=== PATIENT | male | born 1935 | race Caucasian/White ===

== ENCOUNTER 2017-06-26 10:04 | Emergency (ER) | payer MEDICARE, OTHER ==
[~2017-06-26] VITALS: Ht 167.6 cm; Wt 127.0 kg
[~2017-06-26 10:04] MED LIST: ACIPHEX20 MG OR; AMLODIPINE5 MG PO; ASPIR-8181 MG OR; ASPIRIN LOW DOS81 MG PO; ASPIRIN/ENTERIC81 MG PO; AUGMENTIN875TAB PO; AVODART0.5 MG OR; CIPROFLOXACN500 MG PO; COZAAR100 MG OR; FISH OIL1000 MG PO; FLUARIX QUADRIV1 INJ IM; FOLIC ACID1 MG PO; GABAPENTIN300 MG PO; GABAPENTIN600 MG PO; HYDROCHLOROTH12.5 MG OR; HYDROCO/APAP1 TA9 PO; LEVOTHYROXIN50 MCG PO; LOSARTAN/HCT1 TA1 PO; LOVASTATIN20 M1 PO; METFORMIN500 M1 PO; METRONIDAZOL500 MG PO; MULTIVITAMI9 PO; NEURONTIN100 MG PO; NIASPAN500 MG OR; PANTOPRAZOLE SO40 MG PO; PLAVIX75 MG OR; PREDNISONE5 MG PO; RANITIDINE150 M1 OR; RHEUMATREX2.5 M1 PO; TENORMIN100 MG OR; TRAMADOL HCL50 MG PO; TRAMADOL HYDROC50 MG PO; VITAMIN C500 MG OR; VITAMIN E400 UNIT OR; ZOCOR40 MG OR
[2017-06-26] MEDS ORDERED: HYDROCO/APAP1 TA9 PO (10:25)
[2017-06-26] MEDS ORDERED: ELIQUIS5 MG PO (10:25)
[2017-06-26 10:49] LABS: URINE BILIRUBIN - DIPSTICK NEGATIVE (NEGATIVE); URINE BLOOD DIPSTICK NEGATIVE (NEGATIVE); URINE COLOR YELLOW; URINE GLUCOSE - DIPSTICK NEGATIVE (NEGATIVE); URINE KETONE NEGATIVE (NEGATIVE); URINE LEUK ESTERASE NEGATIVE (NEGATIVE); URINE NITRITE - DIPSTICK NEGATIVE (Negative); URINE PH 5.5 (4.5-8.0); URINE PROTEIN - DIPSTICK 100 mg/dL (NEG-TRACE); URINE UROBILINOGEN - DIPSTICK 0.2 E.U./dL (0.2)
[2017-06-26 10:50] LABS: HEMATOCRIT 38.2 % (39.0-50.0); HEMOGLOBIN 12.1 g/dl (14.0-18.0); IMMATURE GRANULOCYTES 0.6 % (0.0-1.0); MEAN CELL VOLUME 100.8 fL CALC (80.0-100.0); MEAN CORPUSCULAR HGB 31.9 pG CALC (26.0-32.0); MEAN CORPUSCULAR HGB CONC 31.7 g/L CALC (32.0-36.0); NEUT# 9.19 thou/uL (1.82-7.42); RED BLOOD COUNT 3.79 mill/uL (4.70-6.10); RED CELL DISTRI WIDTH 15.2 % (11.5-15.5)
[2017-06-26 10:51] LABS: URINE CLARITY CLEAR
[2017-06-26 10:52] LABS: URINE RBC 0-2 RBC/hpf (0-5); URINE WBC 0-2 WBC/hpf (0-5)
[2017-06-26 11:07] LABS: ALBUMIN 4.2 g/dL (3.2-5.0); BILIRUBIN, TOTAL 0.4 mg/dL (0.0-1.4); CREATININE 1.4 mg/dL (0.7-1.3); TOTAL PROTEIN 6.6 g/dL (6.3-8.2)
[2017-06-26 13:09] VITALS: BP 192/108
[2017-07-12] MEDS ORDERED: FUROSEMIDE20 MG PO (09:44)
[2017-07-12] MEDS ORDERED: CYMBALTA30 MG PO (09:44)
[2017-07-12] MEDS ORDERED: TRAMADOL HCL50 MG PO (09:44)
[2017-07-12] MEDS ORDERED: AVODART0.5 MG PO (09:45)
[2017-07-12] MEDS ORDERED: HYDRALAZINE10 M2 PO (09:45)
== END 2017-06-26 13:37 | disposition home or self-care (01) ==
LOC: ED 10:04
PROVIDERS: Emergency Medicine
DX: M54.9 Dorsalgia, unspecified (principal); I10 Essential (primary) hypertension; I25.10 Atherosclerotic heart disease of native coronary artery without angina pectoris; E11.9 Type 2 diabetes mellitus without complications; K21.9 Gastro-esophageal reflux disease without esophagitis

== ENCOUNTER 2017-07-13 05:52 | Day surgery (SDC) | payer MEDICARE, OTHER ==
[~2017-07-13] VITALS: Ht 167.6 cm; Wt 124.7 kg
[~2017-07-13 05:52] MED LIST changes: +AVODART0.5 MG PO; +CYMBALTA30 MG PO; +ELIQUIS5 MG PO; +FUROSEMIDE20 MG PO; +HYDRALAZINE10 M2 PO
[2017-07-13] MEDS ORDERED: HYDROCO/APAP1 TA9 PO (06:18)
[2017-07-13 13:49] VITALS: BP 150/70
== END 2017-07-13 08:05 | disposition home or self-care (01) ==
LOC: ORM 05:52
PROVIDERS: ATTEND Anesthesiology Pain Medicine
PROC: 3E0T3BZ Introduction of Anesthetic Agent into Peripheral Nerves and Plexi, Percutaneous Approach (ICD-10-PCS; principal; 2017-07-13)
PROC: 3E0T33Z Introduction of Anti-inflammatory into Peripheral Nerves and Plexi, Percutaneous Approach (ICD-10-PCS; 2017-07-13)
PROC: 3E0T3BZ Introduction of Anesthetic Agent into Peripheral Nerves and Plexi, Percutaneous Approach (ICD-10-PCS; 2017-07-13)
PROC: 3E0T33Z Introduction of Anti-inflammatory into Peripheral Nerves and Plexi, Percutaneous Approach (ICD-10-PCS; 2017-07-13)
PROC: 3E0T3BZ Introduction of Anesthetic Agent into Peripheral Nerves and Plexi, Percutaneous Approach (ICD-10-PCS; 2017-07-13)
PROC: 3E0T33Z Introduction of Anti-inflammatory into Peripheral Nerves and Plexi, Percutaneous Approach (ICD-10-PCS; 2017-07-13)
PROC: BR161ZZ Fluoroscopy of Lumbar Facet Joint(s) using Low Osmolar Contrast (ICD-10-PCS; 2017-07-13)
DX: M54.5 Low back pain (principal); M46.1 Sacroiliitis, not elsewhere classified; M47.816 Spondylosis without myelopathy or radiculopathy, lumbar region

== ENCOUNTER 2017-07-27 05:41 | Day surgery (SDC) | payer MEDICARE, OTHER ==
[~2017-07-27] VITALS: Ht 167.6 cm; Wt 119.7 kg
[2017-07-27 08:12] VITALS: BP 164/73
== END 2017-07-27 08:10 | disposition home or self-care (01) ==
LOC: ORM 05:41
PROVIDERS: ATTEND Anesthesiology Pain Medicine
PROC: 3E0T33Z Introduction of Anti-inflammatory into Peripheral Nerves and Plexi, Percutaneous Approach (ICD-10-PCS; principal; 2017-07-27)
PROC: 3E0T3BZ Introduction of Anesthetic Agent into Peripheral Nerves and Plexi, Percutaneous Approach (ICD-10-PCS; 2017-07-27)
PROC: 3E0T33Z Introduction of Anti-inflammatory into Peripheral Nerves and Plexi, Percutaneous Approach (ICD-10-PCS; 2017-07-27)
PROC: 3E0T3BZ Introduction of Anesthetic Agent into Peripheral Nerves and Plexi, Percutaneous Approach (ICD-10-PCS; 2017-07-27)
PROC: 3E0T33Z Introduction of Anti-inflammatory into Peripheral Nerves and Plexi, Percutaneous Approach (ICD-10-PCS; 2017-07-27)
PROC: 3E0T3BZ Introduction of Anesthetic Agent into Peripheral Nerves and Plexi, Percutaneous Approach (ICD-10-PCS; 2017-07-27)
PROC: 3E0T33Z Introduction of Anti-inflammatory into Peripheral Nerves and Plexi, Percutaneous Approach (ICD-10-PCS; 2017-07-27)
PROC: 3E0T3BZ Introduction of Anesthetic Agent into Peripheral Nerves and Plexi, Percutaneous Approach (ICD-10-PCS; 2017-07-27)
PROC: 3E0U33Z Introduction of Anti-inflammatory into Joints, Percutaneous Approach (ICD-10-PCS; 2017-07-27)
PROC: 3E0T3BZ Introduction of Anesthetic Agent into Peripheral Nerves and Plexi, Percutaneous Approach (ICD-10-PCS; 2017-07-27)
DX: M54.5 Low back pain (principal); M47.816 Spondylosis without myelopathy or radiculopathy, lumbar region; M16.11 Unilateral primary osteoarthritis, right hip; M71.551 Other bursitis, not elsewhere classified, right hip

== ENCOUNTER 2017-08-17 06:37 | Day surgery (SDC) | payer MEDICARE, OTHER ==
[~2017-08-17] VITALS: Ht 167.6 cm; Wt 115.7 kg
[2017-08-17 08:35] VITALS: BP 178/75
== END 2017-08-17 09:10 | disposition home or self-care (01) ==
LOC: ORM 06:37
PROVIDERS: ATTEND Anesthesiology Pain Medicine
PROC: 3E0233Z Introduction of Anti-inflammatory into Muscle, Percutaneous Approach (ICD-10-PCS; principal; 2017-08-17)
PROC: 3E023BZ Introduction of Anesthetic Agent into Muscle, Percutaneous Approach (ICD-10-PCS; 2017-08-17)
DX: M54.31 Sciatica, right side (principal); M25.551 Pain in right hip
CPT/HCPCS: Q9967

== ENCOUNTER 2017-09-14 14:39 | Emergency (ER) | payer MEDICARE, OTHER ==
[~2017-09-14] VITALS: Ht 167.6 cm; Wt 126.2 kg
[~2017-09-14 14:39] MED LIST changes: -TENORMIN100 MG OR; +TENORMIN100 MG PO; +VOLTAREN1%GEL TOP
[2017-09-14] MEDS ORDERED: FISH OIL1400 MG PO (15:19)
[2017-09-14] MEDS ORDERED: METFORMIN500 M2 PO (15:21)
[2017-09-14] MEDS ORDERED: ASPIRIN CHEWABL81 MG PO (15:22)
[2017-09-14] MEDS ORDERED: LORTAB 5/3255 MG PO (16:24)
[2017-09-14 16:30] VITALS: BP 155/74
== END 2017-09-14 16:30 | disposition home or self-care (01) ==
LOC: ED 14:39
DX: S52.121A Displaced fracture of head of right radius, initial encounter for closed fracture (principal); S43.401A Unspecified sprain of right shoulder joint, initial encounter; S50.311A Abrasion of right elbow, initial encounter; S80.211A Abrasion, right knee, initial encounter; I10 Essential (primary) hypertension; I25.10 Atherosclerotic heart disease of native coronary artery without angina pectoris; E11.9 Type 2 diabetes mellitus without complications; K21.9 Gastro-esophageal reflux disease without esophagitis; W10.8XXA Fall (on) (from) other stairs and steps, initial encounter; Y92.511 Restaurant or cafe as the place of occurrence of the external cause

== ENCOUNTER 2017-11-16 05:48 | Day surgery (SDC) | payer MEDICARE, OTHER ==
[~2017-11-16] VITALS: Ht 167.6 cm; Wt 123.4 kg
[~2017-11-16 05:48] MED LIST changes: +ASPIRIN CHEWABL81 MG PO; +FISH OIL1400 MG PO; +LORTAB 5/3255 MG PO; +METFORMIN500 M2 PO
[2017-11-16 07:46] VITALS: BP 184/89
== END 2017-11-16 08:35 | disposition home or self-care (01) ==
LOC: ORM 05:48
PROVIDERS: ATTEND Anesthesiology Pain Medicine
PROC: 3E0U3BZ Introduction of Anesthetic Agent into Joints, Percutaneous Approach (ICD-10-PCS; principal; 2017-11-16)
PROC: 3E0U33Z Introduction of Anti-inflammatory into Joints, Percutaneous Approach (ICD-10-PCS; 2017-11-16)
PROC: 3E0U3BZ Introduction of Anesthetic Agent into Joints, Percutaneous Approach (ICD-10-PCS; 2017-11-16)
PROC: 3E0U33Z Introduction of Anti-inflammatory into Joints, Percutaneous Approach (ICD-10-PCS; 2017-11-16)
DX: M46.1 Sacroiliitis, not elsewhere classified (principal); M25.551 Pain in right hip; M25.552 Pain in left hip; M16.0 Bilateral primary osteoarthritis of hip
CPT/HCPCS: 20610; G0260

== ENCOUNTER → 2018-07-26 | Outpatient (REF) | payer MEDICARE, OTHER | END | disposition home or self-care (01) | LOC: DI 09:53 | PROVIDERS: ATTEND Nurse Practitioner | DX: M25.532 Pain in left wrist (principal) ==

== ENCOUNTER 2019-05-11 | Day surgery (SDC) | payer MEDICARE, OTHER ==
[~2019-05-11] MED LIST changes: +ALLOPURINOL100 MG PO; +ASPIRIN ADULT L81 M2 PO; +CENTRUM SILVER1 TAB PO; +ELIQUIS2.5 MG PO; +LEVOTHYROXIN88 MC1 PO; +NEURONTIN600 MG PO; +PROTONIX40 M2 PO; +VITAMIN C500 M6 PO; +VITAMIN D31000 UNI1 PO
[2019-05-11] MEDS ORDERED: NORCO1 TA1 PO (09:28)
[2019-12-14] MEDS ORDERED: OZEMPIC2 MG/1.5 M SC (11:12)
== END 2019-05-11 09:53 | disposition home or self-care (01) ==
PROC: 3E0T3BZ Introduction of Anesthetic Agent into Peripheral Nerves and Plexi, Percutaneous Approach (ICD-10-PCS; principal; 2019-05-11)
PROC: 01N50ZZ Release Median Nerve, Open Approach (ICD-10-PCS; 2019-05-11)
DX: G56.02 Carpal tunnel syndrome, left upper limb (principal); E03.9 Hypothyroidism, unspecified

== ENCOUNTER 2021-12-04 19:19 | Emergency (ER) | payer MEDICARE ==
[~2021-12-04] VITALS: Ht 170.2 cm; Wt 125.0 kg
[2021-12-04] VITALS (8 sets, daily range): BP systolic 182–237; BP diastolic 76–207
[~2021-12-04 19:19] MED LIST changes: +NORCO1 TA1 PO; +OZEMPIC2 MG/1.5 M SC
[2021-12-04 19:53] LABS: HEMOGLOBIN 12.4 g/dl (14.0-18.0); IMMATURE GRANULOCYTES 0.3 % (0.0-5.0); MEAN CELL VOLUME 99.5 fL CALC (80.0-100.0); MEAN CORPUSCULAR HGB 31.6 pG CALC (26.0-32.0); MEAN CORPUSCULAR HGB CONC 31.8 g/dL CAL (32.0-36.0); NEUT# 6.46 thou/uL (1.82-7.42); RED BLOOD COUNT 3.92 mill/uL (4.70-6.10); RED CELL DISTRI WIDTH 13.1 % (11.5-15.5)
[2021-12-04 20:09] LABS: ALBUMIN 4.1 g/dL (3.2-5.0); BILIRUBIN, TOTAL 0.3 mg/dL (0.0-1.4); CREATININE 1.9 mg/dL (0.7-1.3); POTASSIUM 3.6 mmol/l (3.5-5.1); TOTAL PROTEIN 7.3 g/dL (6.3-8.2)
[2021-12-04] MEDS ORDERED: TORADOL PO (22:57)
[2021-12-04] MEDS ORDERED: TRAMADOL HCL50 MG PO (22:57)
[2021-12-04 23:03] LABS: URINE BILIRUBIN - DIPSTICK NEGATIVE (NEGATIVE); URINE BLOOD DIPSTICK NEGATIVE (NEGATIVE); URINE COLOR YELLOW; URINE GLUCOSE - DIPSTICK NEGATIVE (NEGATIVE); URINE KETONE NEGATIVE (NEGATIVE); URINE LEUK ESTERASE NEGATIVE (NEGATIVE); URINE PROTEIN - DIPSTICK TRACE mg/dL (NEG-TRACE); URINE UROBILINOGEN - DIPSTICK 0.2 E.U./dL (0.2)
[2021-12-04 23:04] LABS: URINE NITRITE - DIPSTICK NEGATIVE (Negative)
== END 2021-12-04 23:32 | disposition home or self-care (01) ==
LOC: ED 19:19
PROVIDERS: Family Medicine
DX: R07.89 Other chest pain (principal); S80.02XA Contusion of left knee, initial encounter; I10 Essential (primary) hypertension; E11.9 Type 2 diabetes mellitus without complications; I25.10 Atherosclerotic heart disease of native coronary artery without angina pectoris; K21.9 Gastro-esophageal reflux disease without esophagitis; X58.XXXA Exposure to other specified factors, initial encounter; Z79.01 Long term (current) use of anticoagulants; Z20.822 Contact with and (suspected) exposure to COVID-19
CPT/HCPCS: Q9967

== ENCOUNTER 2022-01-26 11:44 | Observation (INO) | payer MEDICARE ==
[~2022-01-26] VITALS: Ht 170.2 cm; Wt 117.0 kg
[~2022-01-26 11:44] MED LIST changes: +ATENOLOL25 MG PO; +FENOFIBRATE134 M1 PO; +HYDRALAZINE HYD10 MG PO; +LEVOTHYROXIN100 MC1 PO; +TORADOL PO
--- NOTE | 2022-01-26 12:08 | NUR ---
PT TO TRIAGE VIA WC
[2022-01-26 13:35] LABS: HEMATOCRIT 39.8 % (39.0-50.0); HEMOGLOBIN 13.8 g/dl (14.0-18.0); IMMATURE GRANULOCYTES 0.6 % (0.0-5.0); MEAN CORPUSCULAR HGB 31.3 pG CALC (26.0-32.0); MEAN CORPUSCULAR HGB CONC 34.7 g/dL CAL (32.0-36.0); NEUT# 7.64 thou/uL (1.82-7.42); RED BLOOD COUNT 4.41 mill/uL (4.70-6.10); RED CELL DISTRI WIDTH 13.3 % (11.5-15.5)
[2022-01-26 13:46] LABS: MEAN CELL VOLUME 90.2 fL CALC (80.0-100.0)
--- NOTE | 2022-01-26 13:51 | NUR ---
BLOOD SUGAR WAS TAKEN, WAS 579.
[2022-01-26 13:56] LABS: ALBUMIN 4.4 g/dL (3.2-5.0); BILIRUBIN, TOTAL 0.8 mg/dL (0.0-1.4); CREATININE 2.2 mg/dL (0.7-1.3); POTASSIUM 4.1 mmol/l (3.5-5.1); TOTAL PROTEIN 7.9 g/dL (6.3-8.2)
--- NOTE | 2022-01-26 15:27 | NUR ---
GLUCOSE LEVEL NOW 491
[2022-01-26] MEDS ORDERED: GABAPENTIN100 MG PO (16:09)
--- NOTE | 2022-01-26 16:33 | NUR ---
PT ASLEEP IN BED.
--- NOTE | 2022-01-26 17:13 | NUR ---
PT REPORT GIVEN TO LITO HERNANDEZ. PT ADMITTED TO ROOM 272.
--- NOTE | 2022-01-26 17:14 | NUR ---
PT TRANSPORTED TO UNIT VIA W/C BY ED STAFF AND SETTLED IN ROOM. ALERT AND ORIENTED X 3, ORIENTED TO ROOM AND SALVADOR ARTIS. DENIES PAIN/DISCOMFORT, TELE MOITOR IN PLACE, GLASSES ON FACE, PARTIAL UPPER DENTURES IN PLACE, BLACK WRIST WATCH ON LEFT ARM, CELL PHONE WITH PT, BACK BRACE IN PLACE, STREET CLOTHES AND SHOES PLACED IN CLOSET, PERSONAL CANE IN ROOM. EDUCATED ON FALL RISKS AND PRECAUTIONS, SIGNS IN PLACE, NEEDS ADDRESSED, WILL CONTINUE TO MONITOR.
[2022-01-26 18:00] VITALS: BP 137/52
[2022-01-26 18:06] VITALS: BP 137/52
[2022-01-26 19:09] VITALS: BP 133/61
[2022-01-26 21:27] VITALS: BP 172/79
--- NOTE | 2022-01-26 21:43 | NUR ---
CRITICAL BLOOD GLUCOSE READING PER GLUCOMETER OF 461, STAT DRAW OF GLUCOSE RECEIVED W/CRITICAL CALLED OF 458 BLOOD GLUCOSE. PHYSICIAN NOTIFIED, AWAITING NEW ORDERS. PT DENIES SYMPTOMS, LOCX4, AMBULATORY. PT STABLE AT THIS TIME.
[2022-01-26 22:15] LABS: URINE BILIRUBIN - DIPSTICK NEGATIVE (NEGATIVE); URINE BLOOD DIPSTICK NEGATIVE (NEGATIVE); URINE COLOR YELLOW; URINE GLUCOSE - DIPSTICK >=1000 mg/dL (NEGATIVE); URINE KETONE NEGATIVE (NEGATIVE); URINE LEUK ESTERASE NEGATIVE (NEGATIVE); URINE PH 5.5 (4.5-8.0); URINE PROTEIN - DIPSTICK 30 mg/dL (NEG-TRACE); URINE UROBILINOGEN - DIPSTICK 0.2 E.U./dL (0.2)
[2022-01-26 22:17] LABS: URINE NITRITE - DIPSTICK NEGATIVE (Negative); URINE RBC 0-2 RBC/hpf (0-5); URINE WBC 0-2 WBC/hpf (0-5)
[2022-01-27] VITALS (10 sets, daily range): BP systolic 118–156; BP diastolic 55–85
--- NOTE | 2022-01-27 00:18 | NUR ---
LAB DRAWN BLOOD GLUCOSE/ 390 RESULTS. PT SLEEPING, NO S/O DISTRESS.
[2022-01-27 05:39] LABS: HEMATOCRIT 36.3 % (39.0-50.0); HEMOGLOBIN 12.6 g/dl (14.0-18.0); IMMATURE GRANULOCYTES 0.8 % (0.0-5.0); MEAN CELL VOLUME 89.9 fL CALC (80.0-100.0); MEAN CORPUSCULAR HGB 31.2 pG CALC (26.0-32.0); MEAN CORPUSCULAR HGB CONC 34.7 g/dL CAL (32.0-36.0); NEUT# 5.35 thou/uL (1.82-7.42); RED BLOOD COUNT 4.04 mill/uL (4.70-6.10); RED CELL DISTRI WIDTH 13.5 % (11.5-15.5)
[2022-01-27 05:44] LABS: MAGNESIUM 2.4 mg/dL (1.6-2.3)
--- NOTE | 2022-01-27 05:48 | NUR ---
PT AWOKE TO OUR VOICES, MEDICATED ORDERS PROVIDE AND IVF REPLENISHED. DENIES ANY OTHER NEEDS. HE WAS ASSISTED REPOSITIONING IN THE BED FOR COMFORT. CALL LIGHT AT SIDE.
--- NOTE | 2022-01-27 07:37 | NUR ---
CHANGE OF SHIFT REPORT GIVEN AT BEDSIDE WITH HS RN, PT AWAKE ALERT AND ORIENTED, PARTICIPATED IN REPORT AND ASKED QUESTIONS WHICH WERE ADDRESSED. HE WAS INFORMED OF USE OF COMPUTERS TO GENERATE RESULTS OF TESTS/PROCEDURES, TO KEEP RECORDS OF MEDICATIONS AND OTHER DOCUMENTATIONS AND TO ELIMINATE THE POSSIBILITIES OF MEDICAL ERRORS. INFUSING TO HIS LEFT AC IS 0.9 NS @ 100ML/HR IN # 20 IV CATHETER, TELE MONITOR IN PLACE, CALL ARTIS IN REACH AND BED LOCKED IN LOWEST POSITION.
--- NOTE | 2022-01-27 13:08 | NUR ---
PT INFORMED OF NEWORDERED PROCEDURE AND STATED UNDERSTANDING, BEING TRANSPORTED OFF UNIT VIA W/C BY VOLUNTEER TO CT AT THIS TIME.
--- NOTE | 2022-01-27 13:31 | NUR ---
TRANSPORTED BACK TO UNIT AND SETTLED IN RECLINER AT THIS TIME.
--- NOTE | 2022-01-27 16:26 | NUR ---
SLEEPING AT THIS TIME, NO SIGN DISCOMFORT, BREATHING EVEN AND NON-LABORED, CALL ARTIS IN REACH.
--- NOTE | 2022-01-27 16:36 | NUR ---
nurse notified about glucose.
[2022-01-28 04:02] VITALS: BP 147/65
[2022-01-28 05:21] LABS: HEMATOCRIT 36.1 % (39.0-50.0); HEMOGLOBIN 12.4 g/dl (14.0-18.0); IMMATURE GRANULOCYTES 0.8 % (0.0-5.0); MEAN CELL VOLUME 91.6 fL CALC (80.0-100.0); MEAN CORPUSCULAR HGB 31.5 pG CALC (26.0-32.0); MEAN CORPUSCULAR HGB CONC 34.3 g/dL CAL (32.0-36.0); NEUT# 3.79 thou/uL (1.82-7.42); RED BLOOD COUNT 3.94 mill/uL (4.70-6.10); RED CELL DISTRI WIDTH 13.5 % (11.5-15.5)
[2022-01-28 05:38] LABS: ALBUMIN 3.7 g/dL (3.2-5.0); BILIRUBIN, TOTAL 0.3 mg/dL (0.0-1.4); CREATININE 1.9 mg/dL (0.7-1.3); POTASSIUM 3.3 mmol/l (3.5-5.1); TOTAL PROTEIN 6.4 g/dL (6.3-8.2)
--- NOTE | 2022-01-28 05:40 | NUR ---
PATIENT SLEPT THROUGH THE NIGHT PEACEFULLY
[2022-01-28 06:36] VITALS: BP 108/61
--- NOTE | 2022-01-28 07:13 | NUR ---
PT RESTING IN LOW FOWLERS POSITION. ALERT /OX3 ASSESSMENT AND VS COMPLETED. HEART RHYTHM ON TELE RESPIRATIONS UNLABORED. BOWEL SOUNDS ACTIVE. IV NOTED TO BOTH LAC AND RAC. SUGAR READING 244. INSULIN TO ADMINISTRER, ALL SAFETY PRECAUTIONS IN PLACE WITH CALL LIGHT IN REACH.
[2022-01-28 10:30] VITALS: BP 150/59
--- NOTE | 2022-01-28 11:49 | NUR ---
PT A/OX3 PT GLUCOSE 289 ADMINSTERED INSULIN EDUCATED PT ON INSULIN PT DENIES ADDITONAL NEEDS AT THE TIME.
[2022-01-28] MEDS ORDERED: LANTUS SOL100 UNIT/M SC (11:56)
--- NOTE | 2022-01-28 13:27 | NUR ---
SPEECH PATHOLOGY-- PT SEEN FOR FEES EVALUATION. HE PRESENTED WITH COMPLETE VENTRICULAR PHONATION WITH MODERATE EDEMA AND ERYTHEMA OF THE VENTRICULAR FOLIDS, ARYTENOID CARTILAGES AND MILD ERYTHEMA OF THE POSTERIOR PHARYNGEAL WALL ABOVE THE UES. PT WITH INCOMPLETE TVF ADDUCTION AND INCOMPLETE TVF ABDUCTION. PRESENTATION CONSISTENT WITH MUSCLE TENSION DYSPHONIA BASED ON CLINICAL HISTORY AND PRESENTATION OF SYMPTOMS. PT CURRENTLY USES ACCESSORY [employer] FOR PHONATION. RECOVERY AGENT RECOMMENDS OUTPATIENT RECOVERY AGENT SERVICES.
--- NOTE | 2022-01-28 15:51 | NUR ---
Discharge instructions given. Patient verbalizes understanding of same. Discharged in stable condition via Wheelchair to Home with staff. All belongings sent with pt. IVS REMOVED TELE REMOVED
== END 2022-01-28 15:51 | disposition home health service (06) ==
LOC: ED 11:44 → ED-I 14:30 → ED 15:03 → MS2 15:04
PROVIDERS: Family Medicine; Nurse Practitioner; ADMIT Internal Medicine; ATTEND Internal Medicine
DX: E11.65 Type 2 diabetes mellitus with hyperglycemia (principal); I12.9 Hypertensive chronic kidney disease with stage 1 through stage 4 chronic kidney disease, or unspecified chronic kidney disease; E11.22 Type 2 diabetes mellitus with diabetic chronic kidney disease; N18.9 Chronic kidney disease, unspecified; I25.10 Atherosclerotic heart disease of native coronary artery without angina pectoris; E87.6 Hypokalemia; E03.9 Hypothyroidism, unspecified; E66.01 Morbid (severe) obesity due to excess calories; G47.33 Obstructive sleep apnea (adult) (pediatric); K22.70 Barrett's esophagus without dysplasia; E78.1 Pure hyperglyceridemia; K21.9 Gastro-esophageal reflux disease without esophagitis; Z68.41 Body mass index [BMI] 40.0-44.9, adult; Z95.5 Presence of coronary angioplasty implant and graft; Z20.822 Contact with and (suspected) exposure to COVID-19